=== PATIENT | male | born 1990 | race Two or more races ===

== ENCOUNTER 2021-01-11 09:40 | Outpatient (CLI) | payer OTHER ==
[2021-01-11 10:45] VITALS: BP 119/83
--- NOTE | 2021-01-11 10:45 | SLEEP CARE CONSULTATION ---
Information from patient questionnaire entered by Becca Mckenzie. I have reviewed and concur with the information entered by Becca Mckenzie. This document represents the service I personally performed and the decisions made by me, Charlene Pereira ARNP. History of Present Illness Service Date and Time: 01/11/2021 0940 Reason for Visit: New patient Chief Complaint: reports: Unrefreshed sleep, Snoring, Excessive daytime sleepiness, Fatigue, Frequent awakenings at night. denies: Observed pauses in breathing Date of Onset: over a year Usual bedtime: 9:30 pm Time it takes to fall asleep: 45 minutes Snores at night: Yes Observed to quit breathing while asleep: Yes Sleeps alone due to snoring: No Number of times waking at night: 2-3 Reasons for waking at night: reports: Snoring, Gasping for air, Bathroom. denies: Choking Toss, Turn, or Twitch while sleeping: Yes Recalls having dreams: Yes Usually gets out of bed at: 5:30 am; weekends 630-7 AM Feels refreshed in the morning: No Morning headache: Yes (resolves around 7-8 am; depends on water intake; frontal DACOSTA; 2 x week) Sleepy or fatigued during the day: Yes Ever fallen asleep while driving: Yes (drowsy driving, no accidents) Takes day naps: No Prior sleep studies: No Additional HPI information: I had the pleasure of seeing TESS ORTIZ today regarding the possibility of him having a sleep disorder. His current complaints are snoring, fatigue and frequent night awakenings. He has loud and frequent snoring. He wakes up a lot at night and he is not waking up feeling rested. He takes trazodone to try to get good night sleep, stay asleep. It helps him fall asleep but not stay asleep. He has rumination thoughts that keep him awake. He gets sleepy during the day. He has had times when he has gotten sleepy at the wheel but has not had any ac cidents. He does have a history of depression with some anxiety as well as PTSD. - Parasomnia Symptoms Ever been unable to move upon waking from sleep: No Walks in sleep: No Talks in sleep: Yes Ever acted out dreams in sleep: Yes Ever felt weak in the knees when startled or emotional: Yes Bothered by creepy, crawly, restless sensations in legs: No Problems with memory or concentration: Yes (concentration) Subjective Initial [place] Sleepiness Scale score: 14 (IN 2020) Past Medical History Past Medical History: reports: Anxiety, Depression, Mood disorder (PTSD), Other (acid reflux occasionally) Social History The patient's occupation is a [employer]. Patient is and lives in [place]. Have you smoked in the past 12 months: No Alcohol use: Yes Alcohol amount and frequency: 1-2 drinks weekly Caffeine use: Yes Caffeine amount and frequency: 1-2 drinks daily Family History Family history of sleep disordered breathing: Yes Family Hx Sleep Apnea: Father: Snoring, Sibling: Snoring, Grandparent: Snoring, Sleep apnea - Untreated Allergies and Home Medications Drug allergies reviewed: Yes (NKDA) Home medication list reviewed: Yes Allergy and home medication list: Prozac Trazodone Review of Systems Weight gain over past 5 years: 20 Cardiovascular: reports: chest pain. denies: high blood pressure Gastrointestinal: reports: heartburn, abdominal pain Urinary: reports: frequency Neurological: reports: headaches Psychiatric: reports: anxiety, depression, mood disorder (PTSD) Ear/Nose/Throat: reports: nasal congestion, dry mouth/throat (and feels sore in mornings), wisdom teeth removed. denies: tonsillectomy Endocrine: reports: sluggishness, excessive thirst, increased appetite, increased urination, unexplained weakness Musculoskeletal: reports: joint pain, neck pain, back pain Immunologic: denies: allergies to food or environment Physical Exam Blood Pressure: 119/83 Cuff size: wrist Heart Rate: 85 O2 Saturation: 97 Height: 5 ft 8 in Weight: 231 lb Body Mass Index: 35.1 BMI Classification: Obese Neck circumference: 16 (inches) Nostrils: patent to airflow Mouth and throat: narrow oropharynx Soft palate: long Hard palate: arched Uvula visualization: 25% Mallampati Class III Tongue: enlarged in size with teeth ramirez on lateral edges Tonsils: 1+ Neck: normal w/o lymphadenopathy or thyromegaly Heart: regular rate and rhythm Lungs: clear bilaterally Impression and Plan 1. Suspected Obstructive Sleep Apnea-Hypopnea Syndrome, as suggested by a history of loud and irregular snoring, observed cessation of breath while asleep, gasping or choking in sleep, morning headache, frequent awakening during the night, unrefreshed sleep, cognitive impairment, and excessive daytime sleepiness. Narrow oropharynx and obesity are common predisposing factors for obstructive sleep apnea-hypopnea syndrome. I recommend proceeding to polysomnography to confirm the diagnosis and to assess severity. If the patient has significant sleep disordered breathing, a manual CPAP titration study will also be performed to find the optimal treatment pressure. I informed the patient of what the sleep studies involve and after some discussion, obtained agreement to proceed. The pathophysiology of obstructive sleep apnea-hypopnea syndrome was discussed with the patient and health risks of cardiovascular and cerebrovascular disease if not treated. Risks of drowsy driving discussed in detail and patient advised to avoid long distance driving and to floor coverings installer at the first sign of drowsiness. Patient agreed to plan. * Schedule polysomnography +- manual CPAP titration study and return in 1-2 weeks after the study to discuss result and initiate therapy. * Avoid long distance driving or driving when feeling sleepy. * Avoid alcohol, sedative and muscle relaxant around bedtime. * Attempt to lose weight. * Review instructions provided by trained office staff on how to prepare for the sleep study. * Return for follow-up after sleep study completed. Counseling Topics: Weight loss health impact Visit Type: In Office Time Spent with Patient (minutes): 30 Provider Statement: I spent 100% of the Face to Face Visit with the patient with greater than 50% spent counseling the patient and coordination of care.
== END 2021-01-11 09:41 | disposition home or self-care (01) ==
LOC: SC 09:40
PROVIDERS: ATTEND Nurse Practitioner Family
DX: G47.10 Hypersomnia, unspecified (principal); R06.81 Apnea, not elsewhere classified; R51.9 Headache, unspecified; R06.83 Snoring; G47.8 Other sleep disorders; E66.9 Obesity, unspecified; Z68.35 Body mass index [BMI] 35.0-35.9, adult
CPT/HCPCS: 99203; 99212

== ENCOUNTER 2021-01-16 10:14 | Outpatient (CLI) | payer OTHER | END 2021-01-16 10:15 | disposition home or self-care (01) | LOC: SC 10:14 | PROVIDERS: ATTEND Nurse Practitioner Family | DX: G47.10 Hypersomnia, unspecified (principal); G47.8 Other sleep disorders; R51.9 Headache, unspecified; R06.81 Apnea, not elsewhere classified; E66.9 Obesity, unspecified; Z68.35 Body mass index [BMI] 35.0-35.9, adult; R41.89 Other symptoms and signs involving cognitive functions and awareness | CPT/HCPCS: 95806 ==

== ENCOUNTER 2021-01-25 13:31 | Outpatient (CLI) | payer OTHER ==
--- NOTE | 2021-01-25 14:03 | SLEEP CARE CONSULTATION ---
Information from patient questionnaire entered by Becca Mckenzie. I have reviewed and concur with the information entered by Becca Mckenzie. This document represents the service I personally performed and the decisions made by , Charlene Pereira ARNP. History of Present Illness Service Date and Time: 01/25/2021 1331 Initial [place] Sleepiness Scale score: 14 (in 2020) Current [place] Sleepiness Scale score: 14 Additional HPI information: TESS ORTIZ returns for follow up and results of the recently performed home sleep study. The patient was informed of the following findings: no significant sleep disordered breathing with an average AHI of 4.1 and I explained the pathophysiology behind obstructive sleep apnea. Patient does not have sleep apnea and was advised how weight gain could increase the risk of developing sleep apnea in the future. I strongly encouraged the patient to lose weight. Patient has moderate snoring. Snoring can be reduced by weight loss. Weight loss is best achieved with diet consult. Patient instructed to contact PCP for referral. Snoring can also be treated with an oral appliance from a dentist. Advised to check insurance coverage. In addition, an ENT evaluation can be do to see if other treatment is indicated. Patient does not drink alcohol. Patient was cautioned about risks of drowsy driving until sleepiness symptoms resolve. Sleep Study - Results Type of Sleep Study: Home sleep study Prior sleep studies: No Polysomnography/Home Sleep Study results: Physician impression: The quality of the sleep study is good. The length of the study is adequate (>240 minutes). Please also see the tabulated and graphic data. 1. No significant sleep disordered breathing, with an aHI of 4.1/hr and gurdeep SaO2 of 84%. During the study, the patient had 14 apneas (14 obstructive, 0 central, 0 mixed) and 17 hypopneas. The longest episode lasted 55.5 seconds. The patient only slept supine during this study (supine AHI was 4.1 and non-supine, 0.00). 2. Hypoxemia (ICD-10 R09.02), minimal, with the lowest oxygen saturation of 84% and 0.9 minutes with SaO2 under 90%. Baseline oxygen saturation was normal (Average oxygen saturation was 94%). Allergies and Home Medications Home medication list reviewed: Yes (no changes) Review of Systems Review of systems same as previous: Yes (no changes) Physical Exam Heart Rate: 86 O2 Saturation: 97 Height: 5 ft 8 in Weight: 225 lb Body Mass Index: 34.2 BMI Classification: Obese Impression and Plan 1. Suspected Obstructive Sleep Apnea-Hypopnea Syndrome, as suggested by a history of loud and irregular snoring, observed cessation of breath while asleep, morning headache, frequent awakening during the night, unrefreshed sleep, cognitive impairment, and excessive daytime sleepiness. His HST showed an average AHI of 4.1 but the patient did not sleep on his side. I recommended to patient that we retest in lab to get more accurate results and to have him also sleep on his side. He voice understanding and we obtained agreement to proceed. The pathophysiology of obstructive sleep apnea-hypopnea syndrome was discussed with the patient and health risks of cardiovascular and cerebrovascular disease if not treated. Risks of drowsy driving discussed in detail and patient advised to avoid long distance driving and to puller machine at the first sign of drowsiness. Patient agreed to plan. * Schedule polysomnography * Avoid long distance driving or driving when feeling sleepy. * Avoid alcohol, sedative and muscle relaxant around bedtime. * Attempt to lose weight. * Review instructions provided by trained office staff on how to prepare for the sleep study. * Return for follow-up after sleep study completed. Counseling Topics: Weight loss health impact Visit Type: In Office Time Spent with Patient (minutes): 19 Provider Statement: I spent 100% of the Face to Face Visit with the patient with greater than 50% spent counseling the patient and coordination of care.
== END 2021-01-25 13:32 | disposition home or self-care (01) ==
LOC: SC 13:31
PROVIDERS: ATTEND Nurse Practitioner Family
DX: R06.83 Snoring (principal); R06.81 Apnea, not elsewhere classified; R51.9 Headache, unspecified; G47.8 Other sleep disorders; G47.10 Hypersomnia, unspecified; R41.89 Other symptoms and signs involving cognitive functions and awareness; E66.9 Obesity, unspecified; Z68.34 Body mass index [BMI] 34.0-34.9, adult
CPT/HCPCS: 99212

== ENCOUNTER 2021-03-22 22:10 | Outpatient (CLI) | payer OTHER | END 2021-03-22 22:11 | disposition home or self-care (01) | LOC: SC 22:10 | PROVIDERS: ATTEND Nurse Practitioner Family | DX: R06.83 Snoring (principal); G47.8 Other sleep disorders; G47.10 Hypersomnia, unspecified; R06.81 Apnea, not elsewhere classified | CPT/HCPCS: 95810 ==

== ENCOUNTER 2021-03-29 08:01 | Outpatient (CLI) | payer OTHER ==
--- NOTE | 2021-03-29 08:13 | SLEEP CARE CONSULTATION ---
Information from patient questionnaire entered by Armando Humphrey. I have reviewed and concur with the information entered by Armando Humphrey. This document represents the service I personally performed and the decisions made by , Charlene Pereira ARNP. History of Present Illness Service Date and Time: 03/29/2021 08 Initial [place] Sleepiness Scale score: 14 (in 2020) Current [place] Sleepiness Scale score: 15 Additional HPI information: TESS ORTIZ returns via Telehealth visit for follow up and results of the recently performed polysomnography. The patient was informed of the following findings: Patient was found to have no significant sleep disordered breathing with an average AHI of 2.9 and gurdeep oxygen saturation of 88%. I explained the pathophysiology behind obstructive sleep apnea. Patient does not have sleep apnea and was advised how weight gain could increase the risk of developing sleep apnea in the future. I strongly encouraged the patient to lose weight. Patient has light to moderate snoring. Snoring can be reduced by weight loss. Weight loss is best achieved with diet consult. Patient instructed to contact PCP for referral. Snoring can also be treated with an oral appliance from a dentist. Advised to check insurance coverage. In addition, an ENT evaluation can be do to see if other treatment is indicated. Patient counseled not drink alcohol less than 4 hours before bedtime as it can increase snoring and apnea. Patient was cautioned about risks of drowsy driving until sleepiness symptoms resolve. Sleep Study - Results Type of Sleep Study: Home sleep study Prior sleep studies: No Polysomnography/Home Sleep Study results: IMPRESSION: The quality of the study is good. The patient had normal sleep efficiency. The sleep architecture was normal as well. Respiratory monitoring showed no significant sleep disordered breathing (AHI = 2.9) or hypoxia (gurdeep oxygen saturation of 88%). The patient only slept supine during this study (supine AHI = 2.9; nonsupine = 0.00). Snore was light to moderate in intensity. There was no significant periodic leg movement of sleep. Cardiac rhythm was normal sinus rhythm without significant arrhythmia. No abnormal behavior (parasomnia) observed during the night. CONCLUSIONS and RECOMMENDATIONS: 1. This is a normal in-laboratory polysomnography. Clinical correlation advised. Allergies and Home Medications Home medication list reviewed: Yes (no changes) Review of Systems Review of systems same as previous: Yes (no changes) Physical Exam Vital signs obtained and entered by: Telehealth visit to reduce exposure during Covid pandemic Height: 5 ft 8 in Impression and Plan Snoring but no significant sleep disordered breathing. Patient advised that often weight loss will reduce snoring as well as apnea risk. An oral appliance can also be used for snoring. This would require a dental consultation. Patient cautioned not to use other online appliances as can cause bite issues. A list of accredited dentists in [facility] and one local dentist who makes oral appliances is available in office. Patient is advised to check if insurance will cover. An ENT consult can also be helpful to determine if any other treatment is an option. Patient states he feels he is not sleeping well and daytime fatigue is probably connected to his stress level. As it has reduced over this last few weeks he has been sleeping better. Patient encouraged to continue to look for ways to improve his sleep hygiene and feel more rested. He may follow-up here if things change or his symptoms worsen. He voiced understanding. * Attempt to lose weight * Avoid alcohol consumption near bedtime * The patient is cautioned about driving until sleepiness is completely resolved. * Return as needed. Counseling Topics: Weight loss health impact Visit Type: Telehealth Video Video Type: VSee Patient Location: Hot Location of Provider: Office Patient agrees and consents to this telehealth visit type: Yes Patient agrees to have their insurance billed: Yes Time Spent with Patient (minutes): 13 Provider Statement: I spent 100% of the Telehealth Video Call with the patient with greater than 50% spent counseling the patient and coordination of care.
== END 2021-03-29 08:02 | disposition home or self-care (01) ==
LOC: SC 08:01
PROVIDERS: ATTEND Nurse Practitioner Family
DX: R06.83 Snoring (principal)